=== PATIENT | female | born 1995 | race Two or more races ===

== ENCOUNTER 2025-01-12 13:49 | Emergency (ER) | payer OTHER ==
[~2025-01-12] VITALS: Ht 157.5 cm; Wt 104.3 kg
[2025-01-12 14:01] VITALS: BP 114/80; O2SAT 100
[2025-01-12] MEDS ORDERED: [UNRECOGNIZED DRUG - OTHER] (14:05)
[2025-01-12] MEDS ORDERED: OBSTETRIX ONE (14:05)
[2025-01-12 15:34] LABS: BASO % 0.2 % (0.1-1.2); EOS # 0.24 (0.04-0.54); EOS % 2.6 % (0.7-7.0); LYMPH # 1.76 (1.18-3.74); LYMPH % 19.4 % (19.3-53.1); MEAN PLATELET VOLUME 8.50 fl (9.4-12.4); MONO # 0.68 (0.24-0.82); MONO % 7.5 % (4.7-12.5); NEUT # 6.35 (1.56-6.13); NEUT % 70.0 % (34.0-71.1); RED CELL DISTRIBUTION WIDTH 12.0 % (11.6-14.4)
[2025-01-12 15:39] LABS: URINE APPEARANCE Clear; URINE BILIRRUBIN Negative (NEGATIVE); URINE BLOOD Large; URINE COLOR Yellow; URINE GLUCOSE Negative (NEGATIVE); URINE KETONE Trace (NEGATIVE); URINE LEUKOCYTE Negative; URINE NITRATE Negative; URINE PROTEIN Negative (NEGATIVE); URINE UROBILINOGEN 0.2 E.U./dl
[2025-01-12 15:41] LABS: URINE BACTERIA 195.5 uL (0.0-1933); URINE EPITHELIAL CELLS 5.2 uL (0.0-38.8); URINE RBC 8.5 uL (0.0-20.8); URINE WBC 4.1 uL (0.0-23.2)
[2025-01-12 15:44] LABS: URINE CAST 0.00 uL (0.0-1.40)
== END 2025-01-12 18:05 ==
LOC: ER 13:49
PROVIDERS: General Practice
DX: O20.8 Other hemorrhage in early pregnancy (principal); Z3A.09 9 weeks gestation of pregnancy; Z91.013 Allergy to seafood

== ENCOUNTER 2025-01-25 04:00 | Emergency (ER) | payer OTHER ==
[~2025-01-25] VITALS: Ht 160 cm; Wt 102.5 kg
[~2025-01-25 04:00] MED LIST: OBSTETRIX ONE; [UNRECOGNIZED DRUG - OTHER]
[2025-01-25] MEDS ORDERED: ONDANSETRON HCL 2 MG/ML VIAL IV ONE (04:45)
[2025-01-25] MEDS ORDERED: FAMOtidine 10 MG/ML (4ML VIAL) IV ONE (04:45)
[2025-01-25] MEDS ORDERED: 0.9 % SODIUM CHLORIDE 1,000 ML IV ONE (04:45)
[2025-01-25 05:49] LABS: INR 0.96
[2025-01-25 06:01] LABS: BASO % 0.1 % (0.1-1.2); EOS # 0.04 (0.04-0.54); EOS % 0.3 % (0.7-7.0); LYMPH # 0.59 (1.18-3.74); LYMPH % 4.0 % (19.3-53.1); MEAN PLATELET VOLUME 8.90 fl (9.4-12.4); MONO # 0.76 (0.24-0.82); MONO % 5.2 % (4.7-12.5); NEUT # 13.25 (1.56-6.13); NEUT % 90.1 % (34.0-71.1); RED CELL DISTRIBUTION WIDTH 12.0 % (11.6-14.4)
[2025-01-25 06:20] LABS: ALT/SGPT 21.0 U/L (12-78); AST/SGOT 17.0 U/L (15-37); BILIRUBIN TOTAL 0.55 mg/dL (0.3-1.2); BUN CREA RATIO 15.0 (7.0-25.0); CREATININE SERUM 0.66 mg/dL (0.55-1.02); GFR 105.15; GLOBULINA 3.8 G/DL (2.4-3.5); GLUCOSE FASTING 121.0 mg/dL (65-100); OSMOLALITY SERUM 276.0 MOSM/KG (275-295)
[2025-01-25 06:21] LABS: HCG QUANTITATIVE 129265.0 mUI/mL (1-3)
[2025-01-25 06:47] LABS: COVID-19 AG NEGATIVE (NEGATIVE)
[2025-01-25] MEDS ORDERED: PEPCID AC20 MG PO (07:02)
[2025-01-25] MEDS ORDERED: ZOFRAN8 MG PO (07:02)
[2025-01-25 08:29] LABS: URINE APPEARANCE Clear; URINE BILIRRUBIN Negative (NEGATIVE); URINE BLOOD Trace; URINE COLOR Yellow; URINE GLUCOSE Negative (NEGATIVE); URINE LEUKOCYTE Negative; URINE NITRATE Negative; URINE PROTEIN Negative (NEGATIVE); URINE UROBILINOGEN 0.2 E.U./dl
[2025-01-25 08:34] LABS: URINE BACTERIA 1647.4 uL (0.0-1933); URINE EPITHELIAL CELLS 22.7 uL (0.0-38.8); URINE RBC 12.6 uL (0.0-20.8); URINE WBC 25.2 uL (0.0-23.2)
[2025-01-25 08:38] LABS: URINE CAST 0.00 uL (0.0-1.40); URINE KETONE 40 (NEGATIVE)
== END 2025-01-25 07:51 | disposition home or self-care (01) ==
LOC: ER 04:00
PROVIDERS: General Practice
DX: Z33.1 Pregnant state, incidental (principal); Z3A.10 10 weeks gestation of pregnancy; R11.2 Nausea with vomiting, unspecified; R19.7 Diarrhea, unspecified; Z20.822 Contact with and (suspected) exposure to COVID-19; Z91.013 Allergy to seafood